=== PATIENT | male | born 1990 | race American Indian/Alaskan Native ===

== ENCOUNTER 2021-02-07 07:15 | Observation (INO) | payer BC ==
[2021-02-07] MEDS ORDERED: ACETAMINOPHEN 325 MG TAB PO ONE (10:10)
--- NOTE | 2021-02-07 10:11 | Emergency Department Report ---
ED Lower Extremity HPI - General Chief Complaint: Back Pain/Injury Stated Complaint: LOWER BACK PAIN Time Seen by Provider: 02/07/21 10:05 Source: patient, EMS Mode of arrival: Stretcher Limitations: No Limitations - History of Present Illness MD Complaint: knee injury - Related Data Allergies Allergy/AdvReac Type Severity Reaction Status Date / Time No Known Allergies Allergy Unverified 02/07/21 07:23 ED Review of Systems ROS: Stated complaint: LOWER BACK PAIN Other details as noted in HPI ED Past Medical Hx - Past Medical History Hx Hypertension: Yes Hx Diabetes: Yes ED Physical Exam - General Limitations: No Limitations ED Course Vital Signs 02/07/21 07:17 Temperature 98.4 F Pulse Rate 130 H Respiratory 18 Rate Blood Pressure 171/108 [Left] O2 Sat by Pulse 100 Oximetry Critical care attestation.: If time is entered above; I have spent that time in minutes in the direct care of this critically ill patient, excluding procedure time. ED Disposition Condition: Stable Referrals: PRIMARY CARE [Primary Care Provider] - 3-5 Days
[2021-02-07] MEDS ORDERED: PIPERACILLIN/TAZOBACTAM 3.375 3.375 GM/50 ML BAG IV ONE (10:25)
[2021-02-07] MEDS ORDERED: SODIUM CHLORIDE 0.9% 1000 ML 1,000 ML IV ONE ×2 (10:25→12:54)
[2021-02-07] MEDS ORDERED: ONDANSETRON 4 MG/2 ML INJ IV ONE (10:25)
[2021-02-07] MEDS ORDERED: MORPHINE 4 MG/1 ML INJ IV ONE (10:25)
--- NOTE | 2021-02-07 10:29 | Emergency Department Report ---
<ALVINA PHELPS - Last Filed: 02/07/21 12:56> ED General Adult HPI - General Chief complaint: Back Pain/Injury Stated complaint: LOWER BACK PAIN Time Seen by Provider: 02/07/21 10:05 - Related Data Allergies Allergy/AdvReac Type Severity Reaction Status Date / Time No Known Allergies Allergy Unverified 02/07/21 07:23 ED Medical Decision Making - Lab Data Result diagrams: 02/07/21 10:48 02/07/21 10:48 - Medical Decision Making Case discussed with hospitalist for admission. Patient has leukocytosis with posterior neck cellulitis versus abscess requiring IV antibiotics. Patient also has uncontrolled diabetes with hyperglycemia without signs of DKA. Insulin, antibiotics, and fluids ordered. Patient cannot receive CT due to weight limit and ultrasound has been ordered to assist with differentiation between cellulitis versus abscess. Surgery consultation ordered ED Disposition Clinical Impression: Cellulitis, neck, SIRS (systemic inflammatory response syndrome) Disposition: ADMITTED INPATIENT Condition: Stable Referrals: PRIMARY CARE, [Primary Care Provider] - 3-5 Days <ELAINA ORTIZ - Last Filed: 02/07/21 13:55> ED General Adult HPI - General Source: patient, EMS Mode of arrival: Stretcher Limitations: No Limitations - History of Present Illness Initial comments: 31-year-old morbid obese female with a past medical history of diabetes, but not compliant with her diabetic medication, hypertension and DVT, supposed to be on Lovenox but has been out for the past 2 weeks presents to the ER today with complaints of significant pain and swelling to the posterior aspect of her neck. Patient states that symptom started 3 days ago has been constant and gradually getting worse. She denies any apparent injury to her neck. She states that she has been having subjective fever, generalized fatigue, weakness and pain with movement of her neck. She also reports associated migraine headache. She reports history of abscesses in the past, but they will minor and typically resolve on their own without any intervention. She denies any known history of MRSA. Complaint: Posterior neck pain -: Gradual, days(s) (3) Severity scale (0 -10): 4 ED Review of Systems ROS: Stated complaint: LOWER BACK PAIN Other details as noted in HPI Comment: All other systems reviewed and negative Constitutional: malaise, weakness. denies: chills, fever Eyes: denies: eye pain, eye discharge, vision change ENT: denies: ear pain, throat pain Respiratory: denies: cough, shortness of breath, SOB with exertion, SOB at rest, wheezing Cardiovascular: denies: chest pain, palpitations Gastrointestinal: denies: abdominal pain, nausea, diarrhea Musculoskeletal: other (Posterior neck pain). denies: back pain, joint swelling, arthralgia Skin: other (Swelling, redness posterior neck). denies: rash, lesions Neurological: headache. denies: weakness, numbness, paresthesias, confusion, abnormal gait, vertigo Psychiatric: denies: anxiety, depression, auditory hallucinations, visual hallucinations, homicidal thoughts, suicidal thoughts Hematological/Lymphatic: denies: easy bleeding, easy bruising ED Past Medical Hx - Past Medical History Hx Hypertension: Yes Hx Diabetes: Yes ED Physical Exam - General Limitations: No Limitations General appearance: alert, in distress (Secondary to pain), obese - Head Head exam: Present: atraumatic, normocephalic, normal inspection - ENT ENT exam: Present: normal exam, mucous membranes moist - Neck Neck exam: Present: tenderness ( tenderness to palpation noted to the posterior neck with what appears to be an area of abscess or cellulitis with moderate erythema, warmth and swelling and induration. No pointing or apparent area of fluctuance noted.), other (Patient has prominent area of soft tissue noted to the posterior aspect of her neck likely secondary to her weight but there is moderate erythema, warmth and swelling and induration. No pointing or apparent area of fluctuance noted. No streaking noted). Absent: meningismus, full ROM (Range of motion of the neck mildly reduced due to the pain to the posterior neck.), lymphadenopathy, thyromegaly - Respiratory Respiratory exam: Present: normal lung sounds bilaterally. Absent: respiratory distress - Cardiovascular Cardiovascular Exam: Present: regular rate - Neurological Exam Neurological exam: Present: alert, oriented X3, CN II-XII intact, normal gait - Psychiatric Psychiatric exam: Present: normal affect, normal mood - Skin Skin exam: Present: intact ED Course Vital Signs 02/07/21 02/07/21 02/07/21 07:17 11:59 12:01 Temperature 98.4 F Pulse Rate 130 H 144 H 100 H Respiratory 18 36 H Rate Blood Pressure 153/116 Blood Pressure 171/108 153/116 [Left] O2 Sat by Pulse 100 97 Oximetry ED Medical Decision Making - Lab Data Result diagrams: 02/07/21 10:48 02/07/21 10:48 - Medical Decision Making Patient notified of about her results and the decision and reason for admission. She agrees with plan. She is currently stable. 1321: Discussed case with Dr. Mcdonald, general surgery, she will consult on patient during the hospital stay. Critical care attestation.: If time is entered above; I have spent that time in minutes in the direct care of this critically ill patient, excluding procedure time. ED Disposition Is pt being admited?: Yes
[2021-02-07] MEDS ORDERED: ACETAMINOPHEN 325 MG TAB ONE (11:05)
[2021-02-07 11:25] LABS: Basophils # (Auto) 0.1 K/mm3 (0.0-0.1); Basophils % (Auto) 0.6 % (0.0-1.8); Eosinophils % (Auto) 0.1 % (0.0-4.3); Lymphocytes # (Auto) 1.5 K/mm3 (1.2-5.4); Lymphocytes % (Auto) 10.5 % (13.4-35.0); Mean Corpuscular HGB Conc 31 % (30-34); Mean Corpuscular Volume 82 fl (79-97); Monocytes % (Auto) 7.4 % (0.0-7.3); Platelet Count 286 K/mm3 (140-440); Red Blood Count 5.79 M/mm3 (3.65-5.03)
[2021-02-07 11:35] LABS: Hematocrit 47.6 % (30.3-42.9); Hemoglobin 14.8 gm/dl (10.1-14.3)
[2021-02-07 11:51] LABS: Alanine Aminotransferase 22 units/L (7-56); Albumin 3.5 g/dL (3.9-5); Blood Urea Nitrogen 6 mg/dL (7-17); Calcium 9.2 mg/dL (8.4-10.2); Hemolysis Index 26
[2021-02-07 11:55] LABS: BUN/Creatinine Ratio 10
[2021-02-07] MEDS ORDERED: INSULIN REGULAR, HUMAN 100 UNITS/1 ML IV ONE (12:53)
[2021-02-07] MEDS ORDERED: CLINDAMYCIN 600 MG/50 mL 600 MG/50 ML BAG IV ONE (12:55)
[2021-02-07] MEDS: INSULIN LISPRO 100 UNIT/ML SUB-Q SCH ×3 (15:28→22:59)
[2021-02-07] MEDS: INSULIN GLARGINE 100 UNITS/ML SUB-Q SCH (15:29)
[2021-02-07] MEDS ORDERED: MORPHINE 4 MG/1 ML INJ ONE (15:31)
[2021-02-07] MEDS ORDERED: MORPHINE 4 MG/1 ML INJ IV PRN (15:32)
--- NOTE | 2021-02-07 15:32 | Consultation ---
History of Present Illness Consult date: 02/07/21 Chief complaint: Neck pain - History of present illness History of present illness: 31-year-old female with a past medical history of poorly controlled diabetes, DVT, morbid obesity who presents to the emergency room with complaints of several days of worsening pain in the posterior aspect of her neck. She states the area started swelling and then slowly became worse. She feels a lot of pressure in the back of the neck which radiates to the front portion of the neck. She has never had anything like this before. She feels hot but did not have a fever. No chest pain, shortness of breath, nausea, vomiting. Patient is noncompliant with her medications. Blood glucose in the emergency room was in the 400s. Past History Past Medical History: diabetes, DVT, other (Morbid obesity) Past Surgical History: No surgical history Social history: no significant social history Family history: no significant family history Medications and Allergies Allergies Allergy/AdvReac Type Severity Reaction Status Date / Time No Known Allergies Allergy Unverified 02/07/21 07:23 Active Meds: Active Medications Insulin Glargine (Insulin Glargine 100 Units/Ml) 25 units SUB-Q QAM CHEIKH Insulin Human Lispro (Insulin Lispro 100 Unit/Ml) 0 unit SUB-Q Q4HR CHEIKH; Protocol Review of Systems All systems: negative (10 point ROS performed and negative except for that listed in HPI) Exam Vital Signs Temp Pulse Resp BP Pulse Ox 98.4 F 130 H 18 171/108 100 02/07/21 07:17 02/07/21 07:17 02/07/21 07:17 02/07/21 07:17 02/07/21 07:17 Narrative exam: Gen.: Awake, alert, oriented x3. No apparent distress ENT: Large area of fluctuance of the posterior neck with marked induration, erythema of the skin. Positive tenderness to palpation CV: S1, S2 present Respiratory: No audible wheezes Abdomen: Soft, nondistended, nontender, morbid obesity. No rebound, rigidity, guarding Extremities: No clubbing, cyanosis, edema Results - Labs 02/07/21 10:48 02/07/21 10:48 Abnormal lab results 02/07/21 02/07/21 02/07/21 Range/Units 10:48 10:48 10:48 WBC 14.0 H (4.5-11.0) K/mm3 RBC 5.79 H (3.65-5.03) M/mm3 Hgb 14.8 H (10.1-14.3) gm/dl Hct 47.6 H (30.3-42.9) % MCH 26 L (28-32) pg Lymph % (Auto) 10.5 L (13.4-35.0) % [place] % (Auto) 7.4 H (0.0-7.3) % [place] # (Auto) 1.0 H (0.0-0.8) K/mm3 Seg Neutrophils % 81.4 H (40.0-70.0) % Seg Neutrophils # 11.4 H (1.8-7.7) K/mm3 Sodium 132 L (137-145) mmol/L Chloride 89.2 L (98-107) mmol/L BUN 6 L (7-17) mg/dL Glucose 444 H (65-100) mg/dL POC Glucose (70-105) mg/dL Lactic Acid 2.20 H* (0.7-2.0) mmol/L Alkaline Phosphatase 183 H (35-129) units/L Total Protein 8.3 H (6.3-8.2) g/dL Albumin 3.5 L (3.9-5) g/dL 02/07/21 Range/Units 13:13 WBC (4.5-11.0) K/mm3 RBC (3.65-5.03) M/mm3 Hgb (10.1-14.3) gm/dl Hct (30.3-42.9) % MCH (28-32) pg Lymph % (Auto) (13.4-35.0) % [place] % (Auto) (0.0-7.3) % [place] # (Auto) (0.0-0.8) K/mm3 Seg Neutrophils % (40.0-70.0) % Seg Neutrophils # (1.8-7.7) K/mm3 Sodium (137-145) mmol/L Chloride (98-107) mmol/L BUN (7-17) mg/dL Glucose (65-100) mg/dL POC Glucose 449 H (70-105) mg/dL Lactic Acid (0.7-2.0) mmol/L Alkaline Phosphatase (35-129) units/L Total Protein (6.3-8.2) g/dL Albumin (3.9-5) g/dL Diabetes panel 02/07/21 Range/Units 10:48 Sodium 132 L (137-145) mmol/L Potassium 4.3 (3.6-5.0) mmol/L Chloride 89.2 L (98-107) mmol/L Carbon Dioxide 24 (22-30) mmol/L BUN 6 L (7-17) mg/dL Creatinine 0.6 (0.6-1.2) mg/dL Glucose 444 H (65-100) mg/dL Calcium 9.2 (8.4-10.2) mg/dL AST 18 (5-40) units/L ALT 22 (7-56) units/L Alkaline Phosphatase 183 H (35-129) units/L Total Protein 8.3 H (6.3-8.2) g/dL Albumin 3.5 L (3.9-5) g/dL Calcium panel 02/07/21 Range/Units 10:48 Calcium 9.2 (8.4-10.2) mg/dL Albumin 3.5 L (3.9-5) g/dL Pituitary panel 02/07/21 Range/Units 10:48 Sodium 132 L (137-145) mmol/L Potassium 4.3 (3.6-5.0) mmol/L Chloride 89.2 L (98-107) mmol/L Carbon Dioxide 24 (22-30) mmol/L BUN 6 L (7-17) mg/dL Creatinine 0.6 (0.6-1.2) mg/dL Glucose 444 H (65-100) mg/dL Calcium 9.2 (8.4-10.2) mg/dL Adrenal panel 02/07/21 Range/Units 10:48 Sodium 132 L (137-145) mmol/L Potassium 4.3 (3.6-5.0) mmol/L Chloride 89.2 L (98-107) mmol/L Carbon Dioxide 24 (22-30) mmol/L BUN 6 L (7-17) mg/dL Creatinine 0.6 (0.6-1.2) mg/dL Glucose 444 H (65-100) mg/dL Calcium 9.2 (8.4-10.2) mg/dL Total Bilirubin 0.90 (0.1-1.2) mg/dL AST 18 (5-40) units/L ALT 22 (7-56) units/L Alkaline Phosphatase 183 H (35-129) units/L Total Protein 8.3 H (6.3-8.2) g/dL Albumin 3.5 L (3.9-5) g/dL - Imaging Additional studies: Ultrasound soft tissue neck -images were reviewed independently. There is a large abscess. Assessment and Plan 31-year-old female with 1. Posterior neck cutaneous abscess 2. Sepsis secondary #1 3. Poorly controlled diabetes 4. Morbid obesity Plan: 1. Consistent carb diet 2. Strict glucose control 3. DVT prophylaxis 4. As needed pain control 5. IV antibiotics 6. Recommend incision and drainage of posterior neck abscess. I discussed this with the patient. The option for bedside versus OR drainage was given. Patient elected to attempt bedside drainage Consent obtained. We will perform today. Thank you for this consultation. Please call with any questions or concerns. Evaluation and treatment of this patient was during the time of the national and state emergency arising from COVID19 coronavirus pandemic. Treatment and procedures performed meet the current and available best practice and guidelines for patient during the COVID pandemic.
[2021-02-07] MEDS ORDERED: LIDOCAINE (2%) 20 MG/1 ML VIAL 20 ML MDV INFILTRATI ONE (15:46)
[2021-02-07] MEDS ORDERED: LIDOCAINE (1%) 10 MG/1 ML VIAL 20 ML MDV INFILTRATI NR (16:00)
--- NOTE | 2021-02-07 16:39 | Procedure Note ---
Date of procedure: 02/07/21 Pre-op diagnosis: Posterior neck abscess Post-op diagnosis: same Procedure: Incision and drainage of posterior neck abscess Findings: Consent obtained and witnessed. Timeout performed with patient's RN present. The posterior neck in the area of fluctuance was prepped and draped in usual sterile fashion. Local anesthetic was infiltrated into the skin at the intended incision site. A 4 cm transverse incision was made over the area of fluctuance. The subcutaneous tissue was probed with a hemostat and there was immediate drainage of foul-smelling purulent fluid. Using a [place]auer the fluid was suctioned deep within the cavity. All loculations were broken up bluntly. The abscess cavity was 4 cm deep and measured approximately 6 cm. The surrounding skin and subcutaneous tissue showed marked inflammation and induration. Approximately 150 cc of pus was evacuated. Cultures were obtained. The wound was then irrigated and hemostasis very carefully achieved. The wound was then packed with 1 piece of quarter inch iodoform packing. The skin was cleansed and covered with a 4 x 4 gauze, ABD pad, secured with tape. The patient tolerated the procedure well. All sharps were disposed of appropriately. Anesthesia: local Surgeon: LANA LAYNE Estimated blood loss: minimal Pathology: list (Wound cultures) Specimen disposition: to lab Condition: stable Disposition: no change
--- NOTE | 2021-02-07 21:36 | History and Physical Report ---
History of Present Illness Date of examination: 02/07/21 Date of admission: 02/07/21 12:57 Chief complaint: Swelling and pain on the back of the neck History of present illness: 31-year-old female with a past medical history of poorly controlled diabetes, DVT, morbid obesity who presents to the emergency room with complaints of several days of worsening pain in the posterior aspect of her neck. She states the area started swelling and then slowly became worse. She feels a lot of pressure in the back of the neck which radiates to the front portion of the n tello. She has never had anything like this before. She feels hot but did not have a fever. No chest pain, shortness of breath, nausea, vomiting. Patient is noncompliant with her medications. Blood glucose in the emergency room was in the 400s. Past History Past Medical History: diabetes, DVT, other (Morbid obesity) Past Surgical History: No surgical history Social history: no significant social history Family history: no significant family history Medications and Allergies Allergies Allergy/AdvReac Type Severity Reaction Status Date / Time No Known Allergies Allergy Unverified 02/07/21 07:23 Active Meds: Active Medications Insulin Glargine (Insulin Glargine 100 Units/Ml) 25 units SUB-Q QAM CHEIKH Insulin Human Lispro (Insulin Lispro 100 Unit/Ml) 0 unit SUB-Q Q4HR CHEIKH; Protocol Review of Systems All systems: negative (10 point ROS performed and negative except for that listed in HPI) Past History Past Medical History: diabetes, DVT, other (Morbid obesity) Past Surgical History: No surgical history Social history: no significant social history Family history: no significant family history Medications and Allergies Allergies Allergy/AdvReac Type Severity Reaction Status Date / Time No Known Allergies Allergy Unverified 02/07/21 07:23 Active Meds: Active Medications Insulin Glargine (Insulin Glargine 100 Units/Ml) 25 units SUB-Q QAM CHEIKH Last Admin: 02/07/21 15:29 Dose: 25 units Documented by: Insulin Human Lispro (Insulin Lispro 100 Unit/Ml) 0 unit SUB-Q Q4HR CHEIKH; Protocol Last Admin: 02/07/21 18:46 Dose: 8 unit Documented by: Lidocaine (Lidocaine (1%) 10 Mg/1 Ml Vial 20 Ml Mdv) 10 ml INFILTRATI PREOP NR Stop: 02/07/21 23:59 Morphine Sulfate (Morphine 4 Mg/1 Ml Inj) 4 mg IV Q4H PRN PRN Reason: Pain , Severe (7-10) Exam - Constitutional Vitals: Temp Pulse Resp BP Pulse Ox 102.0 F H 144 H 24 145/86 90 02/07/21 18:28 02/07/21 18:28 02/07/21 18:28 02/07/21 18:28 02/07/21 18:28 General appearance: Present: no acute distress, well-nourished - EENT Eyes: Present: PERRL ENT: hearing intact, clear oral mucosa - Neck Neck: Present: supple, normal ROM, other (Large abscess on the back of the neck) - Respiratory Respiratory effort: normal Respiratory: bilateral: CTA - Cardiovascular Heart rate: 78 Rhythm: regular Heart Sounds: Present: S1 & S2. Absent: rub, click - Extremities Extremities: pulses symmetrical, No edema Peripheral Pulses: within normal limits - Abdominal General gastrointestinal: Present: soft, non-tender, non-distended, normal bowel sounds Male genitourinary: Present: normal - Integumentary Integumentary: Present: clear, warm, dry - Musculoskeletal Musculoskeletal: gait normal, strength equal bilaterally - Psychiatric Psychiatric: appropriate mood/affect, intact judgment & insight - Neurologic Neurologic: CNII-XII intact, moves all extremities Results - Labs CBC & Chem 7: 02/08/21 06:38 02/07/21 10:48 Labs: Laboratory Last Values WBC 14.0 K/mm3 (4.5-11.0) H 02/07/21 10:48 RBC 5.79 M/mm3 (3.65-5.03) H 02/07/21 10:48 Hgb 14.8 gm/dl (10.1-14.3) H 02/07/21 10:48 Hct 47.6 % (30.3-42.9) H 02/07/21 10:48 MCV 82 fl (79-97) 02/07/21 10:48 MCH 26 pg (28-32) L 02/07/21 10:48 MCHC 31 % (30-34) 02/07/21 10:48 RDW 15.0 % (13.2-15.2) 02/07/21 10:48 Plt Count 286 K/mm3 (140-440) 02/07/21 10:48 Lymph % (Auto) 10.5 % (13.4-35.0) L 02/07/21 10:48 [place] % (Auto) 7.4 % (0.0-7.3) H 02/07/21 10:48 Eos % (Auto) 0.1 % (0.0-4.3) 02/07/21 10:48 Baso % (Auto) 0.6 % (0.0-1.8) 02/07/21 10:48 Lymph # (Auto) 1.5 K/mm3 (1.2-5.4) 02/07/21 10:48 [place] # (Auto) 1.0 K/mm3 (0.0-0.8) H 02/07/21 10:48 Eos # (Auto) 0.0 K/mm3 (0.0-0.4) 02/07/21 10:48 Baso # (Auto) 0.1 K/mm3 (0.0-0.1) 02/07/21 10:48 Seg Neutrophils % 81.4 % (40.0-70.0) H 02/07/21 10:48 Seg Neutrophils # 11.4 K/mm3 (1.8-7.7) H 02/07/21 10:48 Sodium 132 mmol/L (137-145) L 02/07/21 10:48 Potassium 4.3 mmol/L (3.6-5.0) 02/07/21 10:48 Chloride 89.2 mmol/L (98-107) L 02/07/21 10:48 Carbon Dioxide 24 mmol/L (22-30) 02/07/21 10:48 Anion Gap 23 mmol/L 02/07/21 10:48 BUN 6 mg/dL (7-17) L 02/07/21 10:48 Creatinine 0.6 mg/dL (0.6-1.2) 02/07/21 10:48 Estimated GFR > 60 ml/min 02/07/21 10:48 BUN/Creatinine Ratio 10 % 02/07/21 10:48 Glucose 444 mg/dL (65-100) H 02/07/21 10:48 POC Glucose 321 mg/dL (70-105) H 02/07/21 18:32 Lactic Acid 2.20 mmol/L (0.7-2.0) H* 02/07/21 10:48 Calcium 9.2 mg/dL (8.4-10.2) 02/07/21 10:48 Total Bilirubin 0.90 mg/dL (0.1-1.2) 02/07/21 10:48 AST 18 units/L (5-40) 02/07/21 10:48 ALT 22 units/L (7-56) 02/07/21 10:48 Alkaline Phosphatase 183 units/L (35-129) H 02/07/21 10:48 Total Protein 8.3 g/dL (6.3-8.2) H 02/07/21 10:48 Albumin 3.5 g/dL (3.9-5) L 02/07/21 10:48 Albumin/Globulin Ratio 0.7 % 02/07/21 10:48 HCG, Qual Negative (Negative) 02/07/21 10:48 Voiding Method Urinal Microbiology: Microbiology 02/07/21 10:48 Peripheral/Venous Blood Culture - Preliminary Culture in Progress 02/07/21 10:48 Peripheral/Venous Blood Culture - Preliminary Culture in Progress Assessment and Plan - Patient Problems (1) SIRS (systemic inflammatory response syndrome) Current Visit: Yes Status: Acute Plan to address problem: Secondary to the abscess and cellulitis of the neck IV Unasyn and vancomycin initiated (2) Cellulitis, neck Current Visit: Yes Status: Acute Plan to address problem: IV Unasyn and vancomycin initiated (3) Abscess of neck Current Visit: Yes Status: Acute Plan to address problem: Patient going to surgery for incision and drainage Surgery consult appreciated (4) Uncontrolled diabetes mellitus Current Visit: Yes Status: Acute Plan to address problem: Frequent Accu-Cheks and high-dose sliding scale coverage To be transitioned to Lantus and Humalog AC Check hemoglobin A1c (5) Morbid obesity Current Visit: Yes Status: Chronic Plan to address problem: Patient to be referred to bariatric surgery downstairs--Dr. Beth (6) DVT prophylaxis Current Visit: Yes Status: Acute Plan to address problem: On anticoagulation GI prophylaxis
[2021-02-07] MEDS ORDERED: METOCLOPRAMIDE 10 MG/2 ML INJ IV PRN (21:37)
[2021-02-07] MEDS ORDERED: oxyCODONE /ACETAMINOPHEN 5-325MG TAB PO PRN (21:37)
[2021-02-07] MEDS ORDERED: HYDROmorphone 1 MG/1 ML INJ IV PRN (21:37)
[2021-02-07] MEDS ORDERED: ACETAMINOPHEN 325 MG TAB PO PRN (21:37)
[2021-02-07] MEDS ORDERED: ONDANSETRON 4 MG/2 ML INJ IV PRN (21:37)
[2021-02-07] MEDS ORDERED: VANCOMYCIN PHARMACY TO DOSE IV SCH (22:00)
[2021-02-07] MEDS: FAMOTIDINE 20 MG TAB PO SCH (22:57)
[2021-02-07] MEDS: HEPARIN 5,000 UNIT/1 ML VIAL SUB-Q SCH (22:57)
[2021-02-07] MEDS: AMPICILLIN/SULBACTA 3GM/100ML 3 GM/100 ML BAG IV SCH (23:34)
[2021-02-07] MEDS: VANCOMYCIN 2,000 MG in SODIUM CHLORIDE 0.9% 500 ML 500 ML IV SCH (23:34)
[2021-02-08] MEDS: INSULIN LISPRO 100 UNIT/ML SUB-Q SCH ×8 (04:53→22:44)
[2021-02-08] MEDS: AMPICILLIN/SULBACTA 3GM/100ML 3 GM/100 ML BAG IV SCH ×3 (05:43→18:40)
[2021-02-08 07:28] LABS: Basophils # (Auto) 0.1 K/mm3 (0.0-0.1); Basophils % (Auto) 0.6 % (0.0-1.8); Eosinophils % (Auto) 0.2 % (0.0-4.3); Hematocrit 41.3 % (35.5-45.6); Hemoglobin 12.9 gm/dl (11.8-15.2); Lymphocytes # (Auto) 1.9 K/mm3 (1.2-5.4); Lymphocytes % (Auto) 14.6 % (13.4-35.0); Mean Corpuscular HGB Conc 31 % (32-34); Mean Corpuscular Volume 84 fl (84-94); Monocytes # (Auto) 1.6 K/mm3 (0.0-0.8); Monocytes % (Auto) 12.7 % (0.0-7.3); Platelet Count 234 K/mm3 (140-440); Red Blood Count 4.91 M/mm3 (3.65-5.03); Red Cell Distribution Width 14.9 % (13.2-15.2)
[2021-02-08 07:54] LABS: Alanine Aminotransferase 17 units/L (7-56); Albumin 3.1 g/dL (3.9-5); Blood Urea Nitrogen 9 mg/dL (9-20); Calcium 8.6 mg/dL (8.4-10.2); Hemolysis Index 4
[2021-02-08 07:59] LABS: BUN/Creatinine Ratio 13
[2021-02-08] MEDS: FAMOTIDINE 20 MG TAB PO SCH ×2 (09:39→22:38)
[2021-02-08] MEDS: HEPARIN 5,000 UNIT/1 ML VIAL SUB-Q SCH ×2 (09:39→22:36)
[2021-02-08] MEDS: INSULIN GLARGINE 100 UNITS/ML SUB-Q SCH ×2 (09:48→22:54)
[2021-02-08] MEDS: VANCOMYCIN 2,000 MG in SODIUM CHLORIDE 0.9% 500 ML 500 ML IV SCH ×2 (10:34→22:35)
--- NOTE | 2021-02-08 15:34 | Progress Note ---
Assessment and Plan 31-year-old female postop day #1 status post incision and drainage of neck abscess, with uncontrolled diabetes. Afebrile and stable. Continue antibiotics and daily wet-to-dry packing dressings. No further surgical intervention warranted at this time. After discharge patient follow-up with Dr. Mcdonald the office in 2 weeks. Subjective Date of service: 02/08/21 Narrative: No acute events overnight. Patient says his neck is feeling better since it was drained. Objective Vital Signs - 12hr 02/08/21 02/08/21 02/08/21 04:02 05:55 08:11 Temperature 99.7 F H Pulse Rate 114 H Respiratory 17 20 19 Rate Blood Pressure 108/60 O2 Sat by Pulse 92 94 92 Oximetry 02/08/21 02/08/21 12:05 13:44 Temperature 99.2 F Pulse Rate 112 H Respiratory 24 20 Rate Blood Pressure 118/76 O2 Sat by Pulse 90 Oximetry - General physical appearance well developed, no distress, obese - Neck other (Packing removed from incision. No odor. Not tender to palpation. Slight residual purulent drainage.) - Respiratory normal expansion, normal respiratory effort - Labs 02/08/21 06:38 02/08/21 06:38 Diabetes panel 02/08/21 02/08/21 Range/Units 06:38 06:38 Sodium 131 L (137-145) mmol/L Potassium 3.9 (3.6-5.0) mmol/L Chloride 91.3 L (98-107) mmol/L Carbon Dioxide 26 (22-30) mmol/L BUN 9 (9-20) mg/dL Creatinine 0.7 L (0.8-1.3) mg/dL Glucose 387 H (75-100) mg/dL Hemoglobin A1c 14.7 H (4-6) % Calcium 8.6 (8.4-10.2) mg/dL AST 15 (5-40) units/L ALT 17 (7-56) units/L Alkaline Phosphatase 147 H (35-129) units/L Total Protein 7.4 (6.3-8.2) g/dL Albumin 3.1 L (3.9-5) g/dL Calcium panel 02/08/21 Range/Units 06:38 Calcium 8.6 (8.4-10.2) mg/dL Albumin 3.1 L (3.9-5) g/dL Pituitary panel 02/08/21 Range/Units 06:38 Sodium 131 L (137-145) mmol/L Potassium 3.9 (3.6-5.0) mmol/L Chloride 91.3 L (98-107) mmol/L Carbon Dioxide 26 (22-30) mmol/L BUN 9 (9-20) mg/dL Creatinine 0.7 L (0.8-1.3) mg/dL Glucose 387 H (75-100) mg/dL Calcium 8.6 (8.4-10.2) mg/dL Adrenal panel 02/08/21 Range/Units 06:38 Sodium 131 L (137-145) mmol/L Potassium 3.9 (3.6-5.0) mmol/L Chloride 91.3 L (98-107) mmol/L Carbon Dioxide 26 (22-30) mmol/L BUN 9 (9-20) mg/dL Creatinine 0.7 L (0.8-1.3) mg/dL Glucose 387 H (75-100) mg/dL Calcium 8.6 (8.4-10.2) mg/dL Total Bilirubin 1.00 (0.1-1.2) mg/dL AST 15 (5-40) units/L ALT 17 (7-56) units/L Alkaline Phosphatase 147 H (35-129) units/L Total Protein 7.4 (6.3-8.2) g/dL Albumin 3.1 L (3.9-5) g/dL
--- NOTE | 2021-02-08 22:25 | Progress Note ---
Assessment and Plan Assessment and plan: 31-year-old female with a past medical history of poorly controlled diabetes, DVT, morbid obesity who presents to the emergency room with complaints of several days of worsening pain in the posterior aspect of her neck. She states the area started swelling and then slowly became worse. She feels a lot of pressure in the back of the neck which radiates to the front portion of the neck. She has never had anything like this before. She feels hot but did not have a fever. No chest pain, shortness of breath, nausea, vomiting. Patient is noncompliant with her medications. Blood glucose in the emergency room was in the 400s. (1) SIRS (systemic inflammatory response syndrome) Current Visit: Yes Status: Acute Plan to address problem: Secondary to the abscess and cellulitis of the neck IV Unasyn and vancomycin initiated (2) abscess/cellulitis, posterior neck Current Visit: Yes Status: Acute Plan to address problem: IV Unasyn and vancomycin initiated S/p I&D draining 150 cc of pus Wound is packed with gauze, no significant drainage No edema or erythema neck which is supple Had a fever of 102, resolving, patient not looking toxic WBC 14 improving, cultures pending (4) Uncontrolled diabetes mellitus, A1c 14.7 Current Visit: Yes Status: Acute Plan to address problem: Frequent Accu-Cheks and high-dose sliding scale coverage On Lantus and Humalog AC Escalating insulin therapy to optimize glycemic control (5) extremely morbid obesity, BMI 83 Current Visit: Yes Status: Chronic Plan to address problem: Patient to be referred to bariatric surgery downstairs--Dr. Beth (6) neuropathy in lower extremity He used to take gabapentin in the past, will resume DVT prophylaxis Current Visit: Yes Status: Acute Plan to address problem: On anticoagulation GI prophylaxis History Interval history: Patient is doing better since I&D draining 150 cc of pus from back of neck. T- max 102 but fever resolving. Patient is fully alert and oriented and looks comfortable. Not toxic. No acute GI symptoms. Tolerating diet. BG is elevated 350-440. On insulin. Does have some mild neck pain as well as neuropathy pain in right foot which is chronic/intermittent. Used to take gabapentin in the past. Is super obese Hospitalist Physical - Constitutional Vitals: Temp Pulse Resp BP Pulse Ox 97.6 F 113 H 24 134/84 90 02/08/21 22:09 02/08/21 22:09 02/08/21 22:09 02/08/21 22:09 02/08/21 22:09 General appearance: Present: no acute distress, well-nourished, obese (Extremely, super obese) - EENT Eyes: Present: PERRL, EOM intact ENT: clear oral mucosa - Neck Neck: Present: supple, other (Abscess is open with gauze packing on the back of the neck, no significant drainage currently. No erythema or edema in neck. Nontender mostly.) - Respiratory Respiratory effort: normal Respiratory: bilateral: CTA - Cardiovascular Rhythm: regular - Extremities Extremity abnormal: edema - Abdominal General gastrointestinal: non-tender, tender, other (Extremely obese) - Integumentary Integumentary: Absent: rash - Psychiatric Psychiatric: appropriate mood/affect - Neurologic Neurologic: no focal deficits, moves all extremities Results - Labs CBC & Chem 7: 02/08/21 06:38 02/08/21 06:38 Labs: Laboratory Last Values WBC 12.8 K/mm3 (4.5-11.0) H 02/08/21 06:38 RBC 4.91 M/mm3 (3.65-5.03) 02/08/21 06:38 Hgb 12.9 gm/dl (11.8-15.2) 02/08/21 06:38 Hct 41.3 % (35.5-45.6) D 02/08/21 06:38 MCV 84 fl (84-94) 02/08/21 06:38 MCH 26 pg (28-32) L 02/08/21 06:38 MCHC 31 % (32-34) L 02/08/21 06:38 RDW 14.9 % (13.2-15.2) 02/08/21 06:38 Plt Count 234 K/mm3 (140-440) 02/08/21 06:38 Lymph % (Auto) 14.6 % (13.4-35.0) 02/08/21 06:38 [place] % (Auto) 12.7 % (0.0-7.3) H 02/08/21 06:38 Eos % (Auto) 0.2 % (0.0-4.3) 02/08/21 06:38 Baso % (Auto) 0.6 % (0.0-1.8) 02/08/21 06:38 Lymph # (Auto) 1.9 K/mm3 (1.2-5.4) 02/08/21 06:38 [place] # (Auto) 1.6 K/mm3 (0.0-0.8) H 02/08/21 06:38 Eos # (Auto) 0.0 K/mm3 (0.0-0.4) 02/08/21 06:38 Baso # (Auto) 0.1 K/mm3 (0.0-0.1) 02/08/21 06:38 Seg Neutrophils % 71.9 % (40.0-70.0) H 02/08/21 06:38 Seg Neutrophils # 9.2 K/mm3 (1.8-7.7) H 02/08/21 06:38 Sodium 131 mmol/L (137-145) L 02/08/21 06:38 Potassium 3.9 mmol/L (3.6-5.0) 02/08/21 06:38 Chloride 91.3 mmol/L (98-107) L 02/08/21 06:38 Carbon Dioxide 26 mmol/L (22-30) 02/08/21 06:38 Anion Gap 18 mmol/L 02/08/21 06:38 BUN 9 mg/dL (9-20) 02/08/21 06:38 Creatinine 0.7 mg/dL (0.8-1.3) L 02/08/21 06:38 Estimated GFR > 60 ml/min 02/08/21 06:38 BUN/Creatinine Ratio 13 % 02/08/21 06:38 Glucose 387 mg/dL (75-100) H 02/08/21 06:38 POC Glucose 337 mg/dL (70-105) H 02/08/21 21:22 Hemoglobin A1c 14.7 % (4-6) H 02/08/21 06:38 Lactic Acid 2.20 mmol/L (0.7-2.0) H* 02/07/21 10:48 Calcium 8.6 mg/dL (8.4-10.2) 02/08/21 06:38 Total Bilirubin 1.00 mg/dL (0.1-1.2) 02/08/21 06:38 AST 15 units/L (5-40) 02/08/21 06:38 ALT 17 units/L (7-56) 02/08/21 06:38 Alkaline Phosphatase 147 units/L (35-129) H 02/08/21 06:38 Total Protein 7.4 g/dL (6.3-8.2) 02/08/21 06:38 Albumin 3.1 g/dL (3.9-5) L 02/08/21 06:38 Albumin/Globulin Ratio 0.7 % 02/08/21 06:38 HCG, Qual Negative (Negative) 02/07/21 10:48 Microbiology: Microbiology 02/07/21 10:48 Peripheral/Venous Blood Culture - Preliminary NO GROWTH AFTER 24 HOURS 02/07/21 10:48 Peripheral/Venous Blood Culture - Preliminary NO GROWTH AFTER 24 HOURS Vargas/IV: Voiding Method Urinal Active Medications - Current Medications Current Medications: Generic Name Dose Route Start Last Admin Trade Name Freq PRN Reason Stop Dose Admin Acetaminophen 650 mg 02/07/21 21:37 Acetaminophen 325 Mg Tab PO Q4H PRN Pain MILD(1-3)/Fever >100.5/SPARROW Famotidine 20 mg 02/07/21 22:00 02/08/21 09:39 Famotidine 20 Mg Tab PO 20 mg BID CHEIKH Administration Gabapentin 300 mg 02/08/21 23:00 Gabapentin 300 Mg Cap PO 02/08/21 23:01 ONCE ONE Heparin Sodium (Porcine) 5,000 unit 02/07/21 22:00 02/08/21 09:39 Heparin 5,000 Unit/1 Ml Vial SUB-Q 5,000 unit Q12HR CHEIKH Administration Hydromorphone HCl 1 mg 02/07/21 21:37 Hydromorphone 1 Mg/1 Ml Inj IV Q3H PRN Pain , Severe (7-10) Ampicillin Sodium/Sulbactam Sodium 3 gm in 100 mls @ 100 mls/hr 02/08/21 00:00 02/08/21 18:40 Unasyn/Ns 3 Gm/100 Ml IV 100 mls/hr Q6HR CHEIKH Administration Protocol Vancomycin HCl 2,000 mg/ 540 mls @ 250 mls/hr 02/07/21 22:45 02/08/21 10:34 Sodium Chloride IV 250 mls/hr Q12H CHEIKH Administration Insulin Glargine 50 units 02/08/21 22:25 Insulin Glargine 100 Units/Ml SUB-Q BID CHEIKH Insulin Human Lispro 0 unit 02/07/21 15:00 02/08/21 18:44 Insulin Lispro 100 Unit/Ml SUB-Q 4 unit Q4HR CHEIKH Administration Protocol Insulin Human Lispro 20 unit 02/08/21 22:25 Insulin Lispro 100 Unit/Ml SUB-Q AC CHEIKH Metoclopramide HCl 10 mg 02/07/21 21:37 Metoclopramide 10 Mg/2 Ml Inj IV Q6H PRN Nausea And Vomiting Morphine Sulfate 4 mg 02/07/21 15:32 02/07/21 23:16 Morphine 4 Mg/1 Ml Inj IV 4 mg Q4H PRN Administration Pain , Severe (7-10) Ondansetron HCl 4 mg 02/07/21 21:37 Ondansetron 4 Mg/2 Ml Inj IV Q8H PRN Nausea And Vomiting Oxycodone/Acetaminophen 1 tab 02/07/21 21:37 02/08/21 13:44 Oxycodone /Acetaminophen 5-325mg Tab PO 1 tab Q6H PRN Administration Pain, Moderate (4-6) Sodium Chloride 10 ml 02/07/21 22:00 02/08/21 09:39 Sodium Chloride 0.9% 10 Ml Flush Syringe IV 10 ml BID CHEIKH Administration Sodium Chloride 10 ml 02/07/21 21:37 Sodium Chloride 0.9% 10 Ml Flush Syringe IV PRN PRN LINE FLUSH
[2021-02-08] MEDS ORDERED: GABAPENTIN 300 MG CAP PO ONE (23:00)
[2021-02-09] MEDS: INSULIN LISPRO 100 UNIT/ML SUB-Q SCH ×6 (02:41→14:00)
[2021-02-09] MEDS: AMPICILLIN/SULBACTA 3GM/100ML 3 GM/100 ML BAG IV SCH ×3 (02:44→13:45)
[2021-02-09] MEDS: HEPARIN 5,000 UNIT/1 ML VIAL SUB-Q SCH (11:59)
[2021-02-09] MEDS ORDERED: VANCOMYCIN 2,000 MG in SODIUM CHLORIDE 0.9% 500 ML 500 ML IV SCH (12:00)
[2021-02-09] MEDS: INSULIN GLARGINE 100 UNITS/ML SUB-Q SCH ×3 (12:02→12:11)
[2021-02-09] MEDS: VANCOMYCIN 2,000 MG in SODIUM CHLORIDE 0.9% 500 ML 500 ML IV SCH (12:03)
[2021-02-09] MEDS: FAMOTIDINE 20 MG TAB PO SCH (12:07)
[2021-02-09 12:11] VITALS: BP 125/86
--- NOTE | 2021-02-09 16:55 | Discharge Summary ---
Providers - Providers Date of Admission: 02/07/21 12:57 Date of discharge: 02/09/21 Attending physician: JIN POLLARD MD 02/07/21 12:54 Consult to Physician [CONS] Urgent Comment: Consulting Provider: LANA LAYNE Physician Instructions: Reason For Exam: posterior neck abscess vs cellulitis Primary care physician: [employer] Hospitalization Condition: Stable Hospital course: 31-year-old female with a past medical history of poorly controlled diabetes, DVT, morbid obesity with a BMI 83 who presents to the emergency room with complaints of several days of worsening pain in the posterior aspect of her neck. He states the area started swelling and then slowly became worse. He feels a lot of pressure in the back of the neck which radiates to the front portion of the neck. he has never had anything like this before. he feels hot but did not have a fever. No chest pain, shortness of breath, nausea, vomiting. Patient is noncompliant with her medications. Used to take insulin 50units twice daily but not taking any since her 1 month as he ran out of pen needles. blood glucose in the emergency room was in the 400s. He is currently homeless and is planning to go to [place] to live with her sister. (1) SIRS (systemic inflammatory response syndrome) Current Visit: Yes Status: Acute Plan to address problem: Secondary to the abscess and cellulitis of the neck IV Unasyn and vancomycin initiated (2) abscess/cellulitis, posterior neck Current Visit: Yes Status: Acute Plan to address problem: IV Unasyn and vancomycin initiated S/p I&D draining 150 cc of pus Wound is packed with gauze, no significant drainage No edema or erythema neck which is supple Had a fever of 102, resolving, patient not looking toxic WBC 14 improving, cultures pending (4) Uncontrolled diabetes mellitus, A1c 14.7 Current Visit: Yes Status: Acute Plan to address problem: Frequent Accu-Cheks and high-dose sliding scale coverage On Lantus and Humalog AC Escalating insulin therapy to optimize glycemic control, Lantus 50 units twice daily and Humalog 20 units AC. Patient reports intolerance to Metformin and was taking her insulin 50 units twice daily, not taking any insulin since 1 month since ran out of pen needles. (5) extremely morbid obesity, BMI 83 Current Visit: Yes Status: Chronic Plan to address problem: Patient to be referred to bariatric surgery downstairs--Dr. Beth (6) neuropathy in lower extremity He used to take gabapentin in the past, will resume Disposition: Post I&D, fever and leukocytosis are resolved. Patient remained hemodynamically stable. He was placed on a Unasyn and vancomycin. Blood cultures were negative. Wound cultures and pending. Wound was kept open and packed with a dry gauze. There was no significant drainage. There was some surrounding induration but no significant erythema, edema, fluctuation or significant tend erness. Patient has been homeless recently and his sister from [place] offered to pick him up today and take him to her home. Patient stated that he must leave since he has no options and is ready to leave [place] if not discharged. Patient was advised that wound culture reports are still pending and he is receiving antibiotics empirically. Patient stated that he will have follow-up with a physician in 2 to 5 days in [place] and will have his culture reports followed by his physician in [place]. Patient was given a prescription for Augmentin 1000 mg twice daily and Bactrim DS twice daily, both for 10 days. He was given tramadol, as needed for pain control and probiotic. Patient was given a prescription for insulin pen needles at his request. Patient verbalized understanding that hypoglycemia control is very important for proper wound healing and further complications poor glycemic control. Elected to have tight glycemic control under the supervision of his physician in [place]. Patient discharge instructions: Follow-up with your primary care doctor in 2 to 4 days for infection, culture reports and wound care Implement wound care instructions as per the surgeon's instructions A1c is 14.7 suggestive of no sugar control currently which is very serious keep your blood sugars well controlled for proper wound healing Continue insulin therapy making adjustments as needed Disposition: 01 HOME / SELF CARE / HOMELESS Final Discharge Diagnosis (Prints w/discharge instructions): Abscess/cellulitis in the neck, s/p I&D. Extreme obesity, BMI 83. Type 2 diabetes mellitus, noncompliant since 1 month, hemoglobin A1c 14.7. Severe hyperglycemia due to noncompliance. Homelessness. Diabetic neuropathy Core Measure Documentation - Palliative Care Palliative Care/ Comfort Measures: Not Applicable - Core Measures Any of the following diagnoses?: none Exam - Constitutional Vitals: Temp Pulse Resp BP Pulse Ox 97.7 F 109 H 24 125/86 93 02/09/21 11:22 02/09/21 11:22 02/09/21 11:22 02/09/21 11:22 02/09/21 11:22 General appearance: Present: no acute distress, obese (Extremely obese, BMI 83), other (Alert without acute distress.) - EENT Eyes: Present: PERRL, EOM intact ENT: clear oral mucosa - Neck Neck: Present: supple, other (Abscess open, packed with gauze posterior aspect of neck with some induration but no significant edema or fluctuation. No significant drainage. No edema or swelling submandibular or anterior neck.) - Respiratory Respiratory effort: normal Respiratory: bilateral: CTA - Cardiovascular Rhythm: regular - Extremities Extremity abnormal: edema (Puffy from obesity) - Abdominal General gastrointestinal: Present: soft, non-tender, other (Obese) - Integumentary Integumentary: Absent: rash - Musculoskeletal Musculoskeletal: strength equal bilaterally - Psychiatric Psychiatric: appropriate mood/affect - Neurologic Neurologic: no focal deficits, moves all extremities Plan Activity: advance as tolerated Diet: low fat, low salt, diabetic (1800 paco) Wound: per your surgeon's advice, per wound nurse instructions Additional Instructions: Follow-up with your primary care doctor in 2 to 4 days for infection, culture reports and wound care. Implement wound care instructions as per the surgeon's instructions. A1c is 14.7 suggestive of no sugar control currently which is very serious. keep your blood sugars well controlled for proper wound healing. Continue insulin therapy making adjustments as needed Follow up with: PRIMARY CARE, [Primary Care Provider] - 3-5 Days Prescriptions: Amoxicillin/Potassium Clav [Augmentin XR 1000MG 12HR] 1 tab PO BID #20 tab.er.12h Sulfamethoxazole/Trimethoprim [Bactrim DS TAB] 1 each PO BID #20 tablet Gabapentin 300 mg PO BID #60 cap Pen Needle, Diabetic [Insulin Pen Needle] 1 each MC 5XD #200 dis.needle L. Acidophilus/L.bulgaricus [Lactobacillus Tablet] 1 each PO BID #30 tablet traMADoL [Ultram 50 MG tab] 50 mg PO Q6HR PRN #30 tablet PRN Reason: Pain
--- NOTE | 2021-02-10 07:45 | Ultrasound Report ---
ULTRASOUND SOFT TISSUE HEAD AND NECK HISTORY: Posterior neck infection, posterior abscess. Posterior neck swelling and pain TECHNIQUE: Grayscale ultrasound with color Doppler interrogation. COMPARISON: None. FINDINGS: Targeted ultrasound was performed in the left posterior neck at the site of swelling and pa in. The images demonstrate a complex subcutaneous collection containing debris or other echogenic mat erial measuring 5.2 x 4.2 x 4.8 cm. No internal perfusion on color Doppler imaging. IMPRESSION: Complex left posterior neck subcutaneous collection concerning for abscess. Consider further characte rization with CT neck with contrast. Signer Name: Juan Jose Watters Jr, MD Signed: 02/10/2021 7:41 AM Workstation Name: [id number]
== END 2021-02-09 18:10 | disposition home or self-care (01) ==
LOC: EDSEX → ED 07:15 → 3A 12:57
PROVIDERS: ADMIT Internal Medicine; ATTEND Internal Medicine
DX: L02.11 Cutaneous abscess of neck (principal); R65.10 Systemic inflammatory response syndrome (SIRS) of non-infectious origin without acute organ dysfunction; L03.221 Cellulitis of neck; E11.65 Type 2 diabetes mellitus with hyperglycemia; E66.01 Morbid (severe) obesity due to excess calories; Z86.718 Personal history of other venous thrombosis and embolism; Z79.4 Long term (current) use of insulin; Z68.45 Body mass index [BMI] 70 or greater, adult
CPT/HCPCS: 10061; 36415; 76536; 80053; 80202; 82140; 82962; 83036; 84703; 85025; 87040; 96365; 96366; 96367; 96368; 96372; 96375; 96376; 99284; G0378; J0295; J1170; J1644; J2270; J2405; J2543; J3370; J7030; J7040; J7502; Q0162; Q9967; J1815